=== PATIENT | female | born 1985 | race Caucasian/White ===

== ENCOUNTER 2018-05-17 10:26 | Outpatient (CLI) | payer OTHER ==
[~2018-05-17] VITALS: Ht 157.5 cm; Wt 85.0 kg
[~2018-05-17 10:26] MED LIST: IBUP-1222 PO
[2018-05-17 10:57] VITALS: BP 114/61
== END 2018-05-17 11:18 | disposition home or self-care (01) ==
LOC: LDOP 10:26
PROVIDERS: ATTEND Obstetrics & Gynecology
DX: O46.92 Antepartum hemorrhage, unspecified, second trimester (principal); Z3A.23 23 weeks gestation of pregnancy
CPT/HCPCS: 59025; 99201; G0463

== ENCOUNTER 2018-09-05 05:25 | Inpatient (IN) | payer BC, OTHER ==
[~2018-09-05] VITALS: Ht 160 cm; Wt 92.2 kg
[2018-09-05] MEDS ORDERED: LACTATED RINGERS 1,000 ML IV SCH ×2 (05:26→05:30)
[2018-09-05] MEDS ORDERED: OXYTOCIN 30U/ 0.9% NaCL 500ML 500 ML IV SCH (05:26)
[2018-09-05] MEDS ORDERED: METOCLOPRAMIDE 5 MG/ML, 2ML IV ONE (05:30)
[2018-09-05] MEDS ORDERED: LACTATED RINGERS 1,000 ML IVBOLUS ONE (05:30)
[2018-09-05] MEDS ORDERED: SODIUM CITRATE/CITRIC ACID 30 ML UDC PO ONE (05:30)
[2018-09-05 05:34] VITALS: BP 114/62
[2018-09-05] MEDS ORDERED: PREN-3 PO (05:43)
[2018-09-05] MEDS ORDERED: VALA500T4 PO (05:43)
[2018-09-05] MEDS ORDERED: OXYTOCIN 30U/ 0.9% NaCL 500ML 500 ML ONE (05:52)
[2018-09-05] MEDS ORDERED: SODIUM CITRATE/CITRIC ACID 30 ML UDC ONE (05:52)
[2018-09-05] MEDS ORDERED: METOCLOPRAMIDE 5 MG/ML, 2ML ONE (05:52)
[2018-09-05] MEDS ORDERED: NEWBORN KIT ONE (05:52)
[2018-09-05 06:38] LABS: BASOPHILS # (AUTO) 0.02 x10^3/uL (0-0.1); BASOPHILS % (AUTO) 0 % (0-1); EOSINOPHILS % (AUTO) 1 % (1-7); LYMPHOCYTES # (AUTO) 1.92 x10^3/uL (1-3.4); LYMPHOCYTES % (AUTO) 19 % (22-44); MD NO; MEAN CORPUSCULAR HEMOGLOBIN 29.3 pg (27.0-34.8); MEAN CORPUSCULAR HGB CONC 33.6 g/dL (32.4-35.8); MEAN CORPUSCULAR VOLUME 87.3 fL (80-100); MEAN PLATELET VOLUME 8.6 fL (7.4-10.4); MONOCYTES # (AUTO) 0.57 x10^3/uL (0.2-0.8); MONOCYTES % (AUTO) 6 % (2-9); NEUTROPHILS # (AUTO) 7.31 x10^3/uL (1.8-6.8); NEUTROPHILS % (AUTO) 74 % (42-75); PLATELET COUNT 231 x10^3/uL (130-400); RED BLOOD COUNT 3.96 x10^6/uL (3.82-5.3); RED CELL DISTRIBUTION WIDTH 17.2 % (9.6-15.2)
[2018-09-05] MEDS ORDERED: morphine SULFATE/PF 0.5 MG/ML, 10ML ONE (07:30)
[2018-09-05] MEDS ORDERED: PHENYLEPHRINE 10 MG/ML ONE (08:19)
[2018-09-05] MEDS ORDERED: ONDANSETRON 2MG/ML, 2ML ONE ×2 (08:19)
[2018-09-05] MEDS ORDERED: WATER-INJECTION,STERILE 10 ML IV ONE (08:19)
[2018-09-05] MEDS ORDERED: EPHEDRINE 50 MG/ML, 1ML ONE (08:19)
[2018-09-05] MEDS ORDERED: CEFAZOLIN 1,000 MG ONE (08:19)
[2018-09-05] MEDS ORDERED: OXYTOCIN 10 UNITS/ML, 1ML ONE (08:19)
[2018-09-05] MEDS ORDERED: ONDANSETRON 2MG/ML, 2ML IV PRN (09:00)
[2018-09-05] MEDS ORDERED: OXYcodone/APAP 5/325MG TABLET PO PRN (09:00)
[2018-09-05] MEDS ORDERED: SIMETHICONE 80 MG CHEW TAB PO PRN (09:00)
[2018-09-05] MEDS: PRENATAL VIT/IRON/FA 1 EACH TABLET PO SCH (09:00)
[2018-09-05] MEDS ORDERED: morphine SULFATE 10 MG/ML, 1ML IVPush PRN ×2 (09:00)
[2018-09-05] MEDS ORDERED: OXYcodone IR 5MG TABLET PO PRN (09:00)
[2018-09-05] MEDS ORDERED: MISOPROSTOL 200 MCG TABLET PR PRN (09:00)
[2018-09-05] MEDS ORDERED: KETOROLAC 30 MG/1 ML ONE (09:32)
[2018-09-05] MEDS: KETOROLAC 30 MG/1 ML IV SCH ×3 (09:33→22:24)
[2018-09-05] MEDS: LACTATED RINGERS 1,000 ML IV SCH ×4 (10:00→20:00)
[2018-09-05] MEDS: OXYTOCIN 30U/ 0.9% NaCL 500ML 500 ML IV SCH ×2 (10:32→18:27)
[2018-09-05 11:20] VITALS: BP 115/65
[2018-09-05] MEDS: ACYCLOVIR 400 MG TABLET PO SCH ×2 (11:45→22:23)
[2018-09-05 16:19] LABS: BASOPHILS # (AUTO) 0.03 x10^3/uL (0-0.1); BASOPHILS % (AUTO) 0 % (0-1); EOSINOPHILS # (AUTO) 0.01 x10^3/uL (0-0.4); EOSINOPHILS % (AUTO) 0 % (1-7); LYMPHOCYTES # (AUTO) 1.27 x10^3/uL (1-3.4); LYMPHOCYTES % (AUTO) 9 % (22-44); MD NO; MEAN CORPUSCULAR HEMOGLOBIN 29.6 pg (27.0-34.8); MEAN CORPUSCULAR HGB CONC 34.2 g/dL (32.4-35.8); MEAN CORPUSCULAR VOLUME 86.7 fL (80-100); MEAN PLATELET VOLUME 8.5 fL (7.4-10.4); MONOCYTES # (AUTO) 0.67 x10^3/uL (0.2-0.8); MONOCYTES % (AUTO) 5 % (2-9); NEUTROPHILS # (AUTO) 12.66 x10^3/uL (1.8-6.8); NEUTROPHILS % (AUTO) 87 % (42-75); PLATELET COUNT 215 x10^3/uL (130-400); RED BLOOD COUNT 3.74 x10^6/uL (3.82-5.3); RED CELL DISTRIBUTION WIDTH 17.2 % (9.6-15.2)
[2018-09-05 16:47] VITALS: BP 115/65
[2018-09-05 19:59] VITALS: BP 105/57
[2018-09-05 23:50] VITALS: BP 101/63
[2018-09-06] MEDS: LACTATED RINGERS 1,000 ML IV SCH ×7 (02:00→22:48)
[2018-09-06] MEDS: KETOROLAC 30 MG/1 ML IV SCH (03:54)
[2018-09-06 04:15] VITALS: BP 101/62
[2018-09-06] MEDS: OXYTOCIN 30U/ 0.9% NaCL 500ML 500 ML IV SCH ×3 (04:56→22:47)
[2018-09-06 08:05] VITALS: BP 92/50
[2018-09-06] MEDS: DOCUSATE 100 MG CAPSULE PO PRN (11:14)
[2018-09-06] MEDS: PRENATAL VIT/IRON/FA 1 EACH TABLET PO SCH (11:14)
[2018-09-06] MEDS: ACYCLOVIR 400 MG TABLET PO SCH ×2 (11:14→21:53)
[2018-09-06] MEDS: IBUPROFEN 600 MG TABLET PO PRN ×2 (11:14→18:42)
[2018-09-06 20:20] VITALS: BP 125/78
[2018-09-07] MEDS: IBUPROFEN 600 MG TABLET PO PRN (05:37)
[2018-09-07 07:05] VITALS: BP 106/69
[2018-09-07] MEDS: DOCUSATE 100 MG CAPSULE PO PRN (08:56)
[2018-09-07] MEDS: ACYCLOVIR 400 MG TABLET PO SCH (08:56)
[2018-09-07] MEDS: PRENATAL VIT/IRON/FA 1 EACH TABLET PO SCH (08:56)
[2018-09-07] MEDS: LACTATED RINGERS 1,000 ML IV SCH (10:00)
[2018-09-07] MEDS ORDERED: OXYC-302 PO (10:35)
[2018-09-07] MEDS ORDERED: IBUP-1222 PO (10:35)
[2018-09-07] MEDS ORDERED: DOCU-131 PO (10:35)
== END 2018-09-07 13:02 | disposition home or self-care (01) | DRG 785 ==
LOC: LDIP 05:25 → 2NW 10:54
PROVIDERS: ADMIT Obstetrics & Gynecology; ATTEND Obstetrics & Gynecology
PROC: 0UB70ZZ Excision of Bilateral Fallopian Tubes, Open Approach (ICD-10-PCS; principal; 2018-09-05)
PROC: 10D00Z1 Extraction of Products of Conception, Low, Open Approach (ICD-10-PCS; 2018-09-05)
DX: O98.32 Other infections with a predominantly sexual mode of transmission complicating childbirth (principal); O09.43 Supervision of pregnancy with grand multiparity, third trimester; Z82.49 Family history of ischemic heart disease and other diseases of the circulatory system; Z3A.39 39 weeks gestation of pregnancy; Z37.0 Single live birth; Z30.2 Encounter for sterilization; Z83.3 Family history of diabetes mellitus; A60.04 Herpesviral vulvovaginitis; A60.00 Herpesviral infection of urogenital system, unspecified
CPT/HCPCS: 36415; 85025; 86850; 86900; 88302; G0378; J0690; J1885; J2274; J2405; J2370; J2590; J2765; J7120

== ENCOUNTER 2018-10-05 13:00 | Outpatient (CLI) | payer BC, OTHER ==
[~2018-10-05 13:00] MED LIST changes: +DOCU-131 PO; +OXYC-302 PO; +PREN-3 PO; +VALA500T4 PO
== END 2018-10-05 23:59 | disposition home or self-care (01) ==
LOC: WOUND 13:00
PROVIDERS: ATTEND Family Medicine
DX: T81.31XA Disruption of external operation (surgical) wound, not elsewhere classified, initial encounter (principal); Y92.89 Other specified places as the place of occurrence of the external cause; Y83.8 Other surgical procedures as the cause of abnormal reaction of the patient, or of later complication, without mention of misadventure at the time of the procedure
CPT/HCPCS: 99204; 99214

== ENCOUNTER → 2018-10-12 | Outpatient (CLI) | payer BC | END | disposition home or self-care (01) | LOC: WOUND 11:02 | PROVIDERS: ATTEND Family Medicine | DX: T81.31XD Disruption of external operation (surgical) wound, not elsewhere classified, subsequent encounter (principal); Y83.8 Other surgical procedures as the cause of abnormal reaction of the patient, or of later complication, without mention of misadventure at the time of the procedure | CPT/HCPCS: 99213 ==

== ENCOUNTER → 2018-10-29 | Outpatient (CLI) | payer BC | END | disposition home or self-care (01) | LOC: WOUND 13:25 | PROVIDERS: ATTEND Internal Medicine | DX: T81.31XD Disruption of external operation (surgical) wound, not elsewhere classified, subsequent encounter (principal); Y83.8 Other surgical procedures as the cause of abnormal reaction of the patient, or of later complication, without mention of misadventure at the time of the procedure | CPT/HCPCS: 99212 ==